=== PATIENT | female | born 1970 | race Caucasian/White ===

== ENCOUNTER → 2017-01-27 | Outpatient (CLI) | payer OTHER | LOC: EXRD 15:27 | DX: M25.512 Pain in left shoulder (principal) | CPT/HCPCS: 73030 ==

== ENCOUNTER → 2017-04-29 | Outpatient (CLI) | payer OTHER | LOC: KOH-I 15:20 | DX: I82.5Z1 Chronic embolism and thrombosis of unspecified deep veins of right distal lower extremity (principal) | CPT/HCPCS: 93971 ==